=== PATIENT | male | born 1995 | race African-American/Black ===

== ENCOUNTER 2018-01-11 07:05 | Emergency (ER) | payer SELFPAY ==
[~2018-01-11] VITALS: Ht 172.7 cm; Wt 70.0 kg
[2018-01-11 07:14] VITALS: BP 115/80
== END 2018-01-11 09:18 | disposition left against medical advice (07) ==
LOC: ER 07:05
DX: R10.9 Unspecified abdominal pain (principal); R11.2 Nausea with vomiting, unspecified; Z53.21 Procedure and treatment not carried out due to patient leaving prior to being seen by health care provider

== ENCOUNTER 2018-07-19 07:26 | Emergency (ER) | payer MEDICAID ==
[~2018-07-19] VITALS: Ht 185.4 cm; Wt 66.0 kg
[2018-07-19] MEDS ORDERED: SODIUM CHLORIDE 0.9% 1,000 ML IV ONE (07:52)
[2018-07-19] MEDS ORDERED: KETOROLAC 30MG/ML VIAL IV STA (07:52)
[2018-07-19] MEDS ORDERED: ONDANSETRON HCL 4MG/2ML INJ IV ONE (08:00)
[2018-07-19 08:59] LABS: BASOPHILS % 1.4 % (0.0-2.0); EOSINOPHILS % 6.5 % (0.0-5.0); HEMATOCRIT. 43.2 % (42.0-52.0); HEMOGLOBIN. 14.3 g/dL (14.0-18.0); LYMPHOCYTES % 37.5 % (20.0-50.0); MEAN CORPUSCULAR HEMOGLOBIN 31.7 pg (28.0-32.0); MEAN CORPUSCULAR VOLUME 95.8 fL (80.0-94.0); MEAN PLATELET VOLUME 8.8 fl (7.4-10.4); MONOCYTES % 10.2 % (2.0-8.0); NEUTROPHILS % 44.4 % (40.0-76.0); PLATELET 207 x1000/uL (130-400); RED BLOOD CELL COUNT 4.51 mill/uL (4.7-6.1); RED CELL DISTRIBUTION WIDTH 12.9 % (11.6-14.6)
[2018-07-19 09:03] LABS: CHLORIDE 109 mEq/L (98-107)
[2018-07-19 11:04] VITALS: BP 118/73
== END 2018-07-19 11:36 | disposition home or self-care (01) ==
LOC: ER 07:40
DX: K57.90 Diverticulosis of intestine, part unspecified, without perforation or abscess without bleeding (principal); F12.10 Cannabis abuse, uncomplicated
CPT/HCPCS: 36415; 74176; 80053; 83690; 85025; 96361; 96374; 96375; 99284; J1885; J2405; J7030; Z7610

== ENCOUNTER 2018-09-24 06:01 | Emergency (ER) | payer MEDICAID ==
[~2018-09-24] VITALS: Ht 180.3 cm; Wt 80.0 kg
[2018-09-24] MEDS ORDERED: FAMOTIDINE 20MG/2ML VIAL IV STA (06:21)
[2018-09-24] MEDS ORDERED: SODIUM CHLORIDE 0.9% 1,000 ML IV ONE ×2 (06:21→08:26)
[2018-09-24] MEDS ORDERED: MORPHINE SULFATE 4 MG/ML CPJ (NOT FOR IM USE) IV STA (06:21)
[2018-09-24 06:43] LABS: BASOPHILS % 1.1 % (0.0-2.0); EOSINOPHILS % 4.6 % (0.0-5.0); HEMOGLOBIN. 14.9 g/dL (14.0-18.0); LYMPHOCYTES % 34.6 % (20.0-50.0); MEAN CORPUSCULAR HEMOGLOBIN 32.2 pg (28.0-32.0); MEAN CORPUSCULAR VOLUME 95.4 fL (80.0-94.0); MONOCYTES % 7.8 % (2.0-8.0); NEUTROPHILS % 51.9 % (40.0-76.0); PLATELET 203 x1000/uL (130-400); RED BLOOD CELL COUNT 4.61 mill/uL (4.7-6.1); RED CELL DISTRIBUTION WIDTH 13.2 % (11.6-14.6)
[2018-09-24 06:52] LABS: CHLORIDE 107 mEq/L (98-107)
[2018-09-24 06:53] LABS: PROTHROMBIN TIME 10.1 sec (9.6-11.0)
[2018-09-24 07:01] LABS: ETHANOL BLOOD < 10 mg/dL
[2018-09-24 09:20] LABS: CLARITY URINE CLEAR (CLEAR); COLOR URINE YELLOW (YELLOW); KETONES URINE TRACE (NEGATIVE); LEUKOCYTE ESTERASE URINE NEGATIVE (NEGATIVE); NITRITE URINE NEGATIVE (NEGATIVE); OCCULT BLOOD URINE NEGATIVE (NEGATIVE); PROTEIN URINE NEGATIVE (NEGATIVE); SPECIFIC GRAVITY URINE 1.022 (1.005-1.030); UROBILINOGEN URINE 0.2 E.U./dL (0.2-1.0)
[2018-09-24 09:34] LABS: *AMPHETAMINES SCREEN URINE NEGATIVE (NEGATIVE); *BARBITURATES SCREEN URINE NEGATIVE (NEGATIVE); *BENZODIAZEPINES SCREEN URINE NEGATIVE (NEGATIVE); *COCAINE SCREEN URINE NEGATIVE (NEGATIVE)
[2018-09-24 09:35] LABS: CANNABINOID URINE SCREEN PRESUMTIVE POSITIVE (NEGATIVE); METHADONE URINE SCREEN NEGATIVE (NEGATIVE); OPIATES URINE SCREEN PRESUMTIVE POSITIVE (NEGATIVE); PHENCYCLIDINE URINE SCREEN NEGATIVE (NEGATIVE)
[2018-09-24 10:53] VITALS: BP 115/72
== END 2018-09-24 10:55 | disposition home or self-care (01) ==
LOC: ER 06:01
DX: R10.0 Acute abdomen (principal); R11.0 Nausea; E86.0 Dehydration; F17.210 Nicotine dependence, cigarettes, uncomplicated; F12.90 Cannabis use, unspecified, uncomplicated
CPT/HCPCS: 36415; 80053; 80305; 80320; 81003; 83690; 84484; 85025; 85610; 93005; 96361; 96374; 96375; 99284; J2270; J3490; J7030; Z7610; G0480

== ENCOUNTER 2020-05-09 07:19 | Emergency (ER) | payer MEDICAID ==
[~2020-05-09] VITALS: Ht 180.3 cm; Wt 73.0 kg
[2020-05-09 07:22] VITALS: BP 138/74
[2020-05-09 08:29] LABS: BASOPHILS % 0.5 % (0.0-2.0); EOSINOPHILS % 0.7 % (0.0-5.0); HEMATOCRIT. 45.7 % (42.0-52.0); HEMOGLOBIN. 15.2 g/dL (14.0-18.0); LYMPHOCYTES % 16.3 % (20.0-50.0); MEAN CORPUSCULAR HEMOGLOBIN 31.8 pg (28.0-32.0); MEAN CORPUSCULAR VOLUME 95.5 fL (80.0-94.0); MEAN PLATELET VOLUME 9.3 fl (7.4-10.4); MONOCYTES % 6.7 % (2.0-8.0); NEUTROPHILS % 75.8 % (40.0-76.0); PLATELET 240 x1000/uL (130-400); RED BLOOD CELL COUNT 4.78 mill/uL (4.7-6.1); RED CELL DISTRIBUTION WIDTH 12.9 % (11.6-14.6)
[2020-05-09 08:37] LABS: CHLORIDE 107 mEq/L (98-107)
[2020-05-09 08:41] LABS: ETHANOL BLOOD < 10 mg/dL
[2020-05-09 09:24] LABS: CLARITY URINE CLEAR (CLEAR); COLOR URINE DARK YELLOW (YELLOW); KETONES URINE 1+ (NEGATIVE); LEUKOCYTE ESTERASE URINE NEGATIVE (NEGATIVE); NITRITE URINE NEGATIVE (NEGATIVE); OCCULT BLOOD URINE NEGATIVE (NEGATIVE); PROTEIN URINE TRACE (NEGATIVE); SPECIFIC GRAVITY URINE 1.039 (1.005-1.030)
[2020-05-09 10:24] LABS: *AMPHETAMINES SCREEN URINE NEGATIVE (NEGATIVE); *BARBITURATES SCREEN URINE NEGATIVE (NEGATIVE); *BENZODIAZEPINES SCREEN URINE NEGATIVE (NEGATIVE); *COCAINE SCREEN URINE NEGATIVE (NEGATIVE)
[2020-05-09 10:25] LABS: CANNABINOID URINE SCREEN PRESUMTIVE POSITIVE (NEGATIVE); METHADONE URINE SCREEN NEGATIVE (NEGATIVE); OPIATES URINE SCREEN NEGATIVE (NEGATIVE); PHENCYCLIDINE URINE SCREEN NEGATIVE (NEGATIVE)
== END 2020-05-09 08:43 | disposition left against medical advice (07) ==
LOC: ER 07:31
DX: R45.851 Suicidal ideations (principal); F12.10 Cannabis abuse, uncomplicated; I49.9 Cardiac arrhythmia, unspecified
CPT/HCPCS: 36415; 80053; 80305; 80320; 81003; 85025; 93005; 99284; Z7610; G0480

== ENCOUNTER 2022-01-24 08:32 | Emergency (ER) | payer MEDICAID ==
[~2022-01-24] VITALS: Ht 185.4 cm; Wt 77.0 kg
[2022-01-24 09:45] VITALS: BP 119/59
[2022-01-24] MEDS ORDERED: DEXAMETHASONE 10 MG/ML VIAL IV ONE (09:45)
[2022-01-24] MEDS ORDERED: IBUPROFEN 400MG TABLET PO ONE (09:45)
[2022-01-24] MEDS ORDERED: IBUP-2437 MT (11:19)
== END 2022-01-24 12:00 | disposition home or self-care (01) ==
LOC: ER 08:32
DX: B34.9 Viral infection, unspecified (principal); M79.641 Pain in right hand; M79.18 Myalgia, other site
CPT/HCPCS: 71046; 73120; 96374; 99284; J1100